=== PATIENT | male | born 1985 | race Caucasian/White ===

== ENCOUNTER 2020-11-01 13:26 | Emergency (ER) | payer BC, OTHER ==
[~2020-11-01] VITALS: Ht 193 cm; Wt 120.2 kg
[2020-11-01 13:35] VITALS: BP 132/79
[2020-11-01] MEDS ORDERED: LIDOCAINE 1% HCL (LOCAL ANESTH.) INJ 20ML MDV IJ ONE (16:45)
[2020-11-01] MEDS ORDERED: BACITRACIN TOP OINT 1 UD PKG TOP ONE (18:00)
== END 2020-11-01 18:25 | disposition home or self-care (01) ==
LOC: ER 13:26
DX: S61.412A Laceration without foreign body of left hand, initial encounter (principal); W26.9XXA Contact with unspecified sharp object(s), initial encounter; Y93.89 Activity, other specified; Y92.89 Other specified places as the place of occurrence of the external cause; Y99.8 Other external cause status
CPT/HCPCS: 12002; 73130; 99283; J2001

== ENCOUNTER 2020-11-15 09:51 | Emergency (ER) | payer BC ==
[~2020-11-15] VITALS: Ht 195.6 cm; Wt 120.2 kg
[2020-11-15 10:39] VITALS: BP 128/78
== END 2020-11-15 10:40 | disposition home or self-care (01) ==
LOC: ER 09:51
DX: S61.412D Laceration without foreign body of left hand, subsequent encounter (principal); W26.8XXD Contact with other sharp object(s), not elsewhere classified, subsequent encounter